=== PATIENT | male | born 1970 | race Caucasian/White ===

== ENCOUNTER 2017-08-17 13:19 | Emergency (ER) | payer BC, OTHER ==
[2017-08-17] MEDS ORDERED: Bacitracin/Neomycin/Polymyxin B Oint 0.9 GM U/D Packet TOP ONE (14:11)
[2017-08-17] MEDS ORDERED: Diphtheria,Pertussis(Acell),Tetanus Vaccine 0.5 ML SDV IM ONE (14:12)
--- NOTE | 2017-08-17 14:28 | EDM.PDOC ---
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 [No Known Home Meds] 08/17/17 [History] Past Medical History Cardiovascular History: Reports: Angina, Other (See Below) Other Cardiovascular History: h/o pericarditis, lately been having higher BP readings Social & Family History - Family History Family Medical History: Noncontributory - Tobacco Use Smoking Status *Q: Current Every Day Smoker Years of Tobacco use: 20 Packs/Tins Daily: 1 - Caffeine Use Caffeine Use: Reports: Coffee Other Caffeine Use: 2 cans pop/day, 20 oz coffee per day - Alcohol Use Days Per Week of Alcohol Use: 7 Number of Drinks Per Day: 4 Total Drinks Per Week: 28 - Recreational Drug Use Recreational Drug Use: No ED ROS GENERAL - Review of Systems Review Of Systems: See Below Constitutional: Reports: No Symptoms HEENT: Reports: No Symptoms Respiratory: Reports: No Symptoms Cardiovascular: Reports: No Symptoms Endocrine: Reports: No Symptoms GI/Abdominal: Reports: No Symptoms : Reports: No Symptoms Musculoskeletal: Reports: No Symptoms Skin: Reports: No Symptoms Neurological: Reports: No Symptoms Psychiatric: Reports: No Symptoms Hematologic/Lymphatic: Reports: No Symptoms Immunologic: Reports: No Symptoms ED EXAM, SKIN/RASH Exam: See Below Exam Limited By: No Limitations General Appearance: Alert, WD/WN, No Apparent Distress Ears: Normal External Exam, Normal Canal, Hearing Grossly Normal, Normal TMs Nose: Normal Inspection, Normal Mucosa, No Blood Throat/Mouth: Normal Inspection, Normal Lips, Normal Teeth, Normal Gums, Normal Oropharynx, Normal Voice, No Airway Compromise Head: Atraumatic, Normocephalic Neck: Normal Inspection, Supple, Non-Tender, Full Range of Motion Respiratory/Chest: No Respiratory Distress, Lungs Clear, Normal Breath Sounds, No Accessory Muscle Use, Chest Non-Tender Cardiovascular: Normal Peripheral Pulses, Regular Rate, Rhythm, No Edema, No Gallop, No JVD, No Murmur, No Rub GI/Abdominal: Normal Bowel Sounds, Soft, Non-Tender, No Organomegaly, No Distention, No Abnormal Bruit, No Mass (Male) Exam: Deferred Rectal (Males) Exam: Deferred Back Exam: Normal Inspection, Full Range of Motion, NT Extremities: Normal Inspection, Normal Range of Motion, Non-Tender, No Pedal Edema, Normal Capillary Refill Neurological: Alert, Oriented, CN II-XII Intact, Normal Cognition, Normal Gait, Normal Reflexes, No Motor/Sensory Deficits Psychiatric: Normal Affect, Normal Mood Lymphatic: No Adenopathy ED SKIN PROCEDURES - Laceration/Wound Repair Right Upper Anterior Leg Appearance: Subcutaneous, Clean Distal NVT: Neuro & Vascular Intact, No Tendon Injury Anesthetic Type: Local Local Anesthesia - Lidocaine (Xylocaine): 1% Plain Local Anesthetic Volume: 5cc Skin Prep: Chlorhexidine (Hibiciens) Exploration/Debridement/Repair: In a Bloodless Field Closed with: Sutures Suture Size: 4-0 # of Sutures: 5 Suture Type: Nylon Progress/Comments: Patient is a 46-year-old gentleman who is seen with a laceration in the right upper thigh this was about 3-1/2 cm long superficial at this time it was decided to close with 4-0 nylon the area was prepped and draped in the usual standard form 1% Xylocaine was injected after appropriate levels of anesthesia 5 interrupted 4-0 nylon's were placed with excellent closure. Patient was given tetanus toxoid sentences status is unknown. Patient tolerated well procedure will be sent back home in satisfactory condition - Joint Reduction Site: Other (Right thigh) Sedation: Regional Block Local Anesthesia - Lidocaine (Xylocaine): 1% Plain Local Anesthetic Volume: 5cc Pre-Procedure NV Status: Normal Post-Procedure NV Status: Normal Course - Vital Signs Last Recorded V/S: Last Vital Signs Temp 98.8 F 08/17/17 13:34 Pulse 113 H 08/17/17 13:34 Resp 18 08/17/17 13:34 BP 159/95 H 08/17/17 13:52 Pulse Ox 100 08/17/17 13:34 - Orders/Labs/Meds Orders: Active Orders 24 hr Category Date Time Status Vaccines to be Administered [RC] PER UNIT ROUTINE Care 08/17/17 14:13 Active Meds: Medications Discontinued Medications Generic Name Dose Route Start Last Admin Trade Name Sola PRN Reason Stop Dose Admin Diphtheria/Tetanus/Acell Pertussis 0.5 ml 08/17/17 14:12 Adacel IM 08/17/17 14:13 .ONCE ONE Lidocaine HCl 5 ml 08/17/17 14:11 Xylocaine-Mpf 1% INJECT 08/17/17 14:12 ONETIME ONE Neomycin/Polymyxin/Bacitracin 1 each 08/17/17 14:11 Triple Antibiotic Oint TOP 08/17/17 14:12 ONETIME ONE Departure - Departure Time of Disposition: 14:34 Disposition: Home, Self-Care 01 Condition: Good Clinical Impression: Broken skin - Discharge Information Instructions: Laceration Care, Adult, [id number] Referrals: James Ramsay, PAZariaC [Primary Care Provider] - Care Plan Goals: Assessment laceration of right thigh 3-1/2 cm Plan we'll close it with 4-0 nylon 5 interrupted sutures Patient will be sent home he is to change his dressings every 24 hours apply Neosporin and a large Band-Aid may shower and drive - My Orders Last 24 Hours: My Active Orders 08/17/17 14:13 Vaccines to be Administered [RC] PER UNIT ROUTINE - Assessment/Plan Last 24 Hours: My Active Orders 08/17/17 14:13 Vaccines to be Administered [RC] PER UNIT ROUTINE
== END 2017-08-17 15:00 | disposition home or self-care (01) ==
LOC: LL.ED 13:19
DX: S71.111A Laceration without foreign body, right thigh, initial encounter (principal); F17.210 Nicotine dependence, cigarettes, uncomplicated; Z23 Encounter for immunization; W26.8XXA Contact with other sharp object(s), not elsewhere classified, initial encounter
CPT/HCPCS: 12002; 90471; 90715; 99283